=== PATIENT | female | born 1975 | race Two or more races ===

== ENCOUNTER 2019-11-08 12:02 | Emergency (ER) | payer MEDICAID ==
[~2019-11-08] VITALS: Ht 167.6 cm; Wt 68.0 kg
--- NOTE | 2019-11-08 12:20 | NUR ---
THE PATIENT SEEK MEDICAL HELP FOR WORSENING DEPRESSION
[2019-11-08 12:44] LABS: APPEARANCE,URINE CLEAR (CLEAR); BILIRUBIN,URINE NEGATIVE (NEGATIVE); BLOOD, URINE NEGATIVE Ery/uL (NEGATIVE); COLOR,URINE YELLOW (YELLOW); KETONES,URINE NEGATIVE (NEGATIVE); LEUKOCYTE ESTERASE ,URINE TRACE (NEGATIVE); NITRITE, URINE NEGATIVE (NEGATIVE); PROTEIN,URINE NEGATIVE (NEGATIVE); UGLUCOSE NEGATIVE (NEGATIVE); UROBILINOGEN,URINE 0.2 EU/dL (0.2)
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
--- NOTE | 2019-11-08 13:42 | NUR ---
PATIENT ATTEMPTED TO HURT SELF, WITH SITTER AT BEDSIDE, ER STAFF STOPPED ATTEMPT OF PATIENT HURTING SELF
[2019-11-08 13:55] LABS: BACTERIA,URINE Few /HPF (None Seen); RBC,URINE 0-2 /HPF (0-2); SQUAMOUS EPITHELIAL CELL,UR Moderate /HPF (None Seen)
[2019-11-08 14:00] LABS: BASOPHILS % (AUTO) 0.4 % (0.0-2.0); EOSINOPHILS % (AUTO) 3.5 % (0.0-6.0); HEMATOCRIT 36 % (33-45); HEMOGLOBIN 12.1 g/dL (11.5-14.8); LYMPHOCYTES # (AUTO) 1.8 /CMM (0.8-4.8); LYMPHOCYTES % (AUTO) 29.4 % (20.0-44.0); MEAN CORPUSCULAR HGB CONC 34 g/dl (31.0-36.0); MEAN CORPUSCULAR VOLUME 86 fL (82-100); MONOCYTES # (AUTO) 0.6 /CMM (0.1-1.30); MONOCYTES % (AUTO) 10.5 % (2.0-12.0); NEUTROPHILS # (AUTO) 3.4 /CMM (1.8-8.9); NEUTROPHILS % (AUTO) 56.2 % (43.0-81.0); PLATELET COUNT (AUTO) 320 /CMM (150-450); RED BLOOD CELL COUNT(AUTO) 4.16 MIL/uL (4.0-5.2)
[2019-11-08] MEDS ORDERED: LORAZEPAM 1 MG TABLET PO ONE (14:00)
[2019-11-08] MEDS ORDERED: MAGNESIUM HYDROXIDE 30 ML UDC PO ONE (14:00)
--- NOTE | 2019-11-08 14:16 | NUR ---
EVAN consulted with Social warehouse shipping supervisor Meme Webster regarding pt's attempt to wrap the call-light call in the Ed. Per Meme, wastewater treatment engineer Art will need to be called to place pt. on hold for danger to self. EVAN updated [facility] with updated information.
[2019-11-08 14:17] LABS: ALANINE AMINOTRANSFERASE 69 U/L (12-78); ALBUMIN 3.4 g/dL (3.4-5.0); ALCOHOL, BLOOD < 3 mg/dL (0-0); ALKALINE PHOSPHATASE 92 U/L (46-116); ASPARTATE AMINOTRANSFERASE 28 U/L (15-37); BILIRUBIN,DIRECT 0.1 mg/dL (0.0-0.2); BILIRUBIN,TOTAL 0.2 mg/dL (0.2-1.0); CALCIUM, SERUM 9.2 mg/dL (8.5-10.1); CARBON DIOXIDE 33 mmol/L (21-32); CHLORIDE 102 mmol/L (98-107); CREATININE 0.7 mg/dL (0.6-1.3); GLUCOSE 95 mg/dL (74-106); POTASSIUM 4.8 mmol/L (3.5-5.1); SALICYLATE 3.1 mg/dL (2.8-20.0); SODIUM SERUM 140 mmol/L (136-145); UREA NITROGEN, BLOOD 13 mg/dL (7-18)
[2019-11-08 14:20] LABS: ACETAMINOPHEN 0 ug/ml (10-30)
[2019-11-08] MEDS ORDERED: MAGNESIUM HYDROXIDE 30 ML UDC ONE (14:50)
[2019-11-08] MEDS ORDERED: LORAZEPAM 1 MG TABLET ONE (14:51)
--- NOTE | 2019-11-08 15:01 | NUR ---
CALLED EMERGENCY VETERINARY ASSISTANT ART FOR EVAL OF THIS PATIENT
--- NOTE | 2019-11-08 15:38 | NUR ---
security guard garcía castillo at bedside
--- NOTE | 2019-11-08 15:55 | NUR ---
EVAN consulted with crisis team geropsychologist Art. Art called Pierre at [facility] and inquired if they would accept pt. after her suicidal attempt in the ED. Pierre informed Art, they will accept the pt at [facility]. EVAN faxed clinicals to [facility] intake
--- NOTE | 2019-11-08 16:26 | NUR ---
PATIENT ATTEMPTED TO HURT SELF, WITH SITTER AT BEDSIDE, ER STAFF STOPPED ATTEMPT OF PATIENT HURTING SELF
--- NOTE | 2019-11-08 17:15 | NUR ---
PATIENT ACCEPTED A [facility], REPORT PHONE # [phone] [place] [address]) ACCEPTING MD: DR TRUJILLO, DR ALVAREZ
--- NOTE | 2019-11-08 17:21 | NUR ---
REPORT GIVEN TO ARUN MARIN OF [facility]
[2019-11-08] MEDS ORDERED: LEVOFLOXACIN 750 MG /D5W 150ML 150 ML IV ONE ×2 (18:00→18:39)
[2019-11-08] MEDS ORDERED: IBUPROFEN 400 MG TABLET ONE (18:52)
--- NOTE | 2019-11-08 18:55 | NUR ---
RECEIVED VERBAL ORDER FROM KEYLA TORRES FOR TORADOL 30MG IVP. CARRIED OUT ORDER.
[2019-11-08] MEDS ORDERED: KETOROLAC TROMETHAMINE INJ 30 MG/ML VIAL ONE ×2 (18:56→19:31)
[2019-11-08] MEDS ORDERED: IBUPROFEN 400 MG TABLET PO ONE (19:00)
[2019-11-08 19:01] VITALS: BP 142/58
[2019-11-08] MEDS ORDERED: methylPREDNISolone SOD SUCC 125 MG/2ML VIAL IV ONE (19:30)
[2019-11-08] MEDS ORDERED: KETOROLAC TROMETHAMINE INJ 30 MG/ML VIAL IV ONE (19:30)
[2019-11-08] MEDS ORDERED: methylPREDNISolone SOD SUCC 125 MG/2ML VIAL ONE (19:31)
== END 2019-11-08 20:41 ==
LOC: ER 12:05 → EDBD 12:05 → ER 20:41
DX: R45.851 Suicidal ideations (principal); F32.9 Major depressive disorder, single episode, unspecified; F19.10 Other psychoactive substance abuse, uncomplicated; J18.9 Pneumonia, unspecified organism; K59.00 Constipation, unspecified; F17.200 Nicotine dependence, unspecified, uncomplicated
CPT/HCPCS: 36415; 71045; 74176; 80048; 80076; 80305; 80307; 80329; 81001; 84703; 85025; 96365; 96375; 99285; G0480; J1885 ×2; J1956; J2930; 81000-TC

== ENCOUNTER 2020-06-28 18:22 | Emergency (ER) | payer MEDICAID, OTHER ==
[~2020-06-28] VITALS: Ht 167.6 cm; Wt 68.0 kg
--- NOTE | 2020-06-28 18:32 | NUR ---
called for triage not in the waiting room
--- NOTE | 2020-06-28 18:38 | NUR ---
called for triage not in the waiting room
--- NOTE | 2020-06-28 18:43 | NUR ---
Patient came in to the er c/o suicidal ideation "i want to overdose on my pills". On room air, breathing evenly and unlabored. sitter at bedside for constant monitoring. will continue to monitor accordingly.
--- NOTE | 2020-06-28 18:44 | NUR ---
called security for wanding
--- NOTE | 2020-06-28 18:45 | NUR ---
security at bedside for wanding
--- NOTE | 2020-06-28 19:10 | NUR ---
ASSUMED CARE FOR THIS PT
[2020-06-28 19:15] LABS: APPEARANCE,URINE CLEAR (CLEAR); BASOPHILS % (AUTO) 0.2 % (0.0-2.0); BILIRUBIN,URINE NEGATIVE (NEGATIVE); BLOOD, URINE SMALL Ery/uL (NEGATIVE); COLOR,URINE YELLOW (YELLOW); EOSINOPHILS % (AUTO) 1.8 % (0.0-6.0); HEMATOCRIT 37 % (33-45); HEMOGLOBIN 12.4 g/dL (11.5-14.8); KETONES,URINE NEGATIVE (NEGATIVE); LEUKOCYTE ESTERASE ,URINE MODERATE (NEGATIVE); LYMPHOCYTES # (AUTO) 1.7 /CMM (0.8-4.8); LYMPHOCYTES % (AUTO) 26.8 % (20.0-44.0); MEAN CORPUSCULAR HGB CONC 34 g/dl (31.0-36.0); MEAN CORPUSCULAR VOLUME 91 fL (82-100); MONOCYTES # (AUTO) 0.8 /CMM (0.1-1.30); MONOCYTES % (AUTO) 12.2 % (2.0-12.0); NEUTROPHILS # (AUTO) 3.7 /CMM (1.8-8.9); NITRITE, URINE NEGATIVE (NEGATIVE); PLATELET COUNT (AUTO) 327 /CMM (150-450); PROTEIN,URINE NEGATIVE (NEGATIVE); RED BLOOD CELL COUNT(AUTO) 4.03 MIL/uL (4.0-5.2); UGLUCOSE NEGATIVE (NEGATIVE); UROBILINOGEN,URINE 0.2 EU/dL (0.2); WHITE BLOOD COUNT (AUTO) 6.2 K/uL (4.3-11.0)
--- NOTE | 2020-06-28 19:15 | NUR ---
PT AAOX4, VSS, RESPIRATIONS EVEN AND UNLABORED ON RA W/ NAD NOTED. PT CONNECTED TO THE MONITOR AND POX. SITTER AT BEDSIDE FOR SAFETY
[2020-06-28 19:29] LABS: BACTERIA,URINE 2+ /HPF (None Seen)
[2020-06-28] MEDS ORDERED: ACETAMINOPHEN 325 MG TABLET PO ONE (19:30)
[2020-06-28] MEDS ORDERED: ONDANSETRON 4 MG TAB.RAPDIS SL ONE (19:30)
--- NOTE | 2020-06-28 19:30 | NUR ---
KEYLA BROWN AT BEDSIDE
[2020-06-28 19:33] LABS: CALCIUM, SERUM 8.3 mg/dL (8.5-10.1); CARBON DIOXIDE 22 mmol/L (21-32); CHLORIDE 105 mmol/L (98-107); CREATININE 0.7 mg/dL (0.6-1.3); GLUCOSE 80 mg/dL (74-106); SODIUM SERUM 136 mmol/L (136-145); UREA NITROGEN, BLOOD 14 mg/dL (7-18)
[2020-06-28] MEDS ORDERED: NITROFURANTOIN/NITROFURAN MAC 100 MG CAPSULE ONE (19:42)
[2020-06-28] MEDS ORDERED: ACETAMINOPHEN ES 500 MG TABLET ONE (19:42)
[2020-06-28] MEDS ORDERED: ONDANSETRON 4 MG TAB.RAPDIS ONE (19:42)
[2020-06-28 19:45] LABS: ALANINE AMINOTRANSFERASE 62 U/L (12-78); ALBUMIN 3.2 g/dL (3.4-5.0); ALCOHOL, BLOOD < 3 mg/dL (0-0); ALKALINE PHOSPHATASE 90 U/L (46-116); ASPARTATE AMINOTRANSFERASE 21 U/L (15-37); BILIRUBIN,DIRECT 0.1 mg/dL (0.0-0.2); BILIRUBIN,TOTAL 0.2 mg/dL (0.2-1.0); TOTAL PROTEIN, SERUM 6.6 g/dL (6.4-8.2)
[2020-06-28] MEDS ORDERED: CHLORDIAZEPOXIDE HCL 25 MG CAPSULE PO ONE (20:00)
[2020-06-28] MEDS ORDERED: NITROFURANTOIN/NITROFURAN MAC 100 MG CAPSULE PO ONE (20:00)
[2020-06-28] MEDS ORDERED: PHENOBARBITAL 30 MG TABLET PO ONE (20:00)
--- NOTE | 2020-06-28 20:00 | NUR ---
PT REFUSED TYLENON 1 GM. PA MADE AWARE
[2020-06-28 20:07] LABS: ACETAMINOPHEN < 2 ug/ml (10-30); SALICYLATE 2.4 mg/dL (2.8-20.0)
[2020-06-28] MEDS ORDERED: CHLORDIAZEPOXIDE HCL 25 MG CAPSULE ONE (20:09)
[2020-06-28] MEDS ORDERED: PHENOBARBITAL 30 MG TABLET ONE (20:10)
--- NOTE | 2020-06-28 22:01 | NUR ---
PT RESTING COMFORTBALY IN BED. NAD NOTED. VSS. SITTER AT BEDSIDE FOR SAFETY
--- NOTE | 2020-06-28 22:16 | NUR ---
PT WANDERING AROUND THE ER. PT REORIENTED TO HER ROOM.
--- NOTE | 2020-06-29 00:11 | NUR ---
Patient is resting comfortably in bed with eyes closed. Easily aroused. VSS.
[2020-06-29] MEDS ORDERED: LORAZEPAM 1 MG TABLET ONE (00:50)
[2020-06-29] MEDS ORDERED: LORAZEPAM 1 MG TABLET PO ONE (01:00)
[2020-06-29] MEDS ORDERED: NICOTINE PATCH (21MG) 21 MG PATCH.TD24 TD ONE ×2 (01:10→01:30)
--- NOTE | 2020-06-29 01:23 | NUR ---
PT ASLEEP. NAD NOTED. VSS. SITTER AT BEDSIDE FOR SAFETY
--- NOTE | 2020-06-29 03:20 | NUR ---
PT RESTING COMFORTBALY IN BED. NAD NOTED. VSS. SITTER AT BEDSIDE FOR SAFETY
--- NOTE | 2020-06-29 04:38 | NUR ---
AMBULATED TO THE RESTROOM
--- NOTE | 2020-06-29 06:57 | NUR ---
PT RESTING COMFORTABLY, PROVIDED WITH MORE BLANKETS.
--- NOTE | 2020-06-29 10:37 | NUR ---
ACCEPTED AT [facility] BY DR. EAMON FLORES [phone]
--- NOTE | 2020-06-29 11:15 | NUR ---
CALLED CALL THE CAR. CONFIRMATION NUMBER [phone]. AWAITING CALL BACK FOR ETA
--- NOTE | 2020-06-29 11:23 | NUR ---
AMBULANCE ETA 12PM
[2020-06-29] MEDS ORDERED: PHENOBARBITAL 30 MG TABLET PO ONE (12:30)
[2020-06-29] MEDS ORDERED: CHLORDIAZEPOXIDE HCL 25 MG CAPSULE PO ONE (12:30)
[2020-06-29] MEDS ORDERED: NITROFURANTOIN/NITROFURAN MAC 100 MG CAPSULE PO ONE (12:30)
--- NOTE | 2020-06-29 12:32 | NUR ---
CALL FROM JULIA MACIAS, GOING TO [address], REPORT TO [phone], ASK FOR UNIT 2, ACCEPTED BY DR ARMENDARIZ
--- NOTE | 2020-06-29 12:42 | NUR ---
30-40 MIN ETA AMBULIFE
[2020-06-29] MEDS ORDERED: PHENOBARBITAL 30 MG TABLET ONE (12:48)
[2020-06-29] MEDS ORDERED: CHLORDIAZEPOXIDE HCL 25 MG CAPSULE ONE (12:48)
[2020-06-29] MEDS ORDERED: NITROFURANTOIN/NITROFURAN MAC 100 MG CAPSULE ONE (12:48)
[2020-06-29 13:14] VITALS: BP 120/68
--- NOTE | 2020-06-29 13:14 | NUR ---
REPORT GIVEN TO MENA MARIN.
--- NOTE | 2020-06-29 13:17 | NUR ---
REPORT GIVEN TO CONVEYOR INSTALLER. NO DISTRESS NOTED.
--- NOTE | 2020-06-29 13:21 | NUR ---
Patient Tranfers to outside Facility Physician: [facility] Location: [place] [id number], STABLE CONDITION.
== END 2020-06-29 13:22 ==
LOC: ER 18:28
DX: R45.851 Suicidal ideations (principal); F41.9 Anxiety disorder, unspecified; N39.0 Urinary tract infection, site not specified; R11.0 Nausea; F17.200 Nicotine dependence, unspecified, uncomplicated; G40.909 Epilepsy, unspecified, not intractable, without status epilepticus; F32.9 Major depressive disorder, single episode, unspecified; Z88.6 Allergy status to analgesic agent
CPT/HCPCS: 36415; 80048; 80076; 80305; 80307; 80329; 81001; 84703; 85025; 87086; 99285; 99406; G0480; Q0162; 81000-TC

== ENCOUNTER 2021-05-04 20:53 | Emergency (ER) | payer OTHER ==
[~2021-05-04] VITALS: Ht 167.6 cm; Wt 68.0 kg
--- NOTE | 2021-05-04 21:03 | NUR ---
CALLED TO TRIAGE, NOT IN WAITING ROOM
--- NOTE | 2021-05-04 21:13 | NUR ---
PRSENTED TO THE ER W/ C/O SI , PLANNING TO JUMP IN TO TRAFFIC. REQUESTING MEDICAL CLEARANC FOR VOLUNTARY PSYCH ADMISSION. PT AMBULATORY W/ SEADY GAITS. VSS. UNABLE TO PROVIDE URINE SAMPLE AT THIS TIME. PT REMAINED ON A CLOSE OBSERVATION W. SI PRECAUTION IN PLACE. WILL CONT TO MONITOR ,
[2021-05-04 21:35] LABS: BILIRUBIN,URINE NEGATIVE (NEGATIVE); COLOR,URINE YELLOW (YELLOW); LEUKOCYTE ESTERASE ,URINE NEGATIVE (NEGATIVE); NITRITE, URINE NEGATIVE (NEGATIVE); PH,URINE 5.5 (5.0-8.0); PROTEIN,URINE NEGATIVE (NEGATIVE); UGLUCOSE NEGATIVE (NEGATIVE); UROBILINOGEN,URINE 0.2 EU/dL (0.2)
[2021-05-04 21:37] LABS: BASOPHILS % (AUTO) 0.2 % (0.0-2.0); EOSINOPHILS % (AUTO) 1.7 % (0.0-6.0); HEMATOCRIT 38 % (33-45); HEMOGLOBIN 12.9 g/dL (11.5-14.8); LYMPHOCYTES # (AUTO) 1.6 K/uL (0.8-4.8); LYMPHOCYTES % (AUTO) 20.2 % (20.0-44.0); MEAN CORPUSCULAR HGB CONC 34 g/dl (31.0-36.0); MEAN CORPUSCULAR VOLUME 90 fL (82-100); MONOCYTES # (AUTO) 0.7 K/uL (0.1-1.30); MONOCYTES % (AUTO) 8.2 % (2.0-12.0); NEUTROPHILS # (AUTO) 5.7 K/uL (1.8-8.9); NEUTROPHILS % (AUTO) 69.7 % (43.0-81.0); PLATELET COUNT (AUTO) 301 K/uL (150-450); RED BLOOD CELL COUNT(AUTO) 4.26 MIL/uL (4.0-5.2); WHITE BLOOD COUNT (AUTO) 8.1 K/uL (4.3-11.0)
[2021-05-04 21:53] LABS: CALCIUM, SERUM 8.5 mg/dL (8.5-10.1); CARBON DIOXIDE 28 mmol/L (21-32); CHLORIDE 103 mmol/L (98-107); CREATININE 0.7 mg/dL (0.6-1.3); GLUCOSE 87 mg/dL (74-106); POTASSIUM 4.3 mmol/L (3.5-5.1); SODIUM SERUM 137 mmol/L (136-145); UREA NITROGEN, BLOOD 7 mg/dL (7-18)
[2021-05-04 21:59] LABS: ALANINE AMINOTRANSFERASE 135 U/L (12-78); ALBUMIN 3.9 g/dL (3.4-5.0); ALKALINE PHOSPHATASE 273 U/L (46-116); ASPARTATE AMINOTRANSFERASE 124 U/L (15-37); BILIRUBIN,DIRECT 0.1 mg/dL (0.0-0.2); BILIRUBIN,TOTAL 0.2 mg/dL (0.2-1.0); TOTAL PROTEIN, SERUM 7.2 g/dL (6.4-8.2)
[2021-05-04 22:01] LABS: ACETAMINOPHEN < 2 ug/ml (10-30); ALCOHOL, BLOOD < 3 mg/dL (0-0)
--- NOTE | 2021-05-05 01:06 | NUR ---
PER FÉLIX AT [facility], PT GOT ACCEPTED AT [facility] BY DR DENNISON AT UNIT 2
--- NOTE | 2021-05-05 01:18 | NUR ---
CALLED CALL THE CAR AND SPOKE TO GREYSON TO ARRANGE TRANSPORTATION TO [facility]. WILL GIVE US A CALL BACK WITH AN ETA. RESERVATION NUMBER: [id number]
--- NOTE | 2021-05-05 01:43 | NUR ---
ETA: 0330 BY [facility]
[2021-05-05 01:59] VITALS: BP 111/72
--- NOTE | 2021-05-05 02:57 | NUR ---
PT WAS TRANSFERRED TO [facility] BY AISHA IN STABLE CONDITION, ALL BELONGINGS WERE PICKED UP
== END 2021-05-05 03:00 ==
LOC: ER 20:57
DX: R45.851 Suicidal ideations (principal); G40.909 Epilepsy, unspecified, not intractable, without status epilepticus; K50.90 Crohn's disease, unspecified, without complications; Z88.6 Allergy status to analgesic agent; J43.9 Emphysema, unspecified; Z20.822 Contact with and (suspected) exposure to COVID-19
CPT/HCPCS: 36415; 80048; 80076; 80143; 80307; 80320; 81003; 84703; 85025; 87426; 99285; C9803; G0480

== ENCOUNTER 2021-06-09 15:23 | Emergency (ER) | payer OTHER ==
[~2021-06-09] VITALS: Ht 167.6 cm; Wt 63.5 kg
--- NOTE | 2021-06-09 15:48 | NUR ---
TO ER BED 20, C/O SUICIDAL IDEATION LIKE SLITTING WRIST OR OD ON PILLS, PLACED ON SUICIDE PRECAUTION, 1:1 SUPERVISION
[2021-06-09 16:19] LABS: BASOPHILS % (AUTO) 0.9 % (0.0-2.0); EOSINOPHILS % (AUTO) 5.1 % (0.0-6.0); HEMATOCRIT 41 % (33-45); HEMOGLOBIN 13.8 g/dL (11.5-14.8); LYMPHOCYTES # (AUTO) 1.7 K/uL (0.8-4.8); MEAN CORPUSCULAR HGB CONC 33 g/dl (31.0-36.0); MEAN CORPUSCULAR VOLUME 90 fL (82-100); MONOCYTES # (AUTO) 0.4 K/uL (0.1-1.30); MONOCYTES % (AUTO) 8.9 % (2.0-12.0); NEUTROPHILS # (AUTO) 2.4 K/uL (1.8-8.9); NEUTROPHILS % (AUTO) 50.1 % (43.0-81.0); PLATELET COUNT (AUTO) 219 K/uL (150-450); WHITE BLOOD COUNT (AUTO) 4.9 K/uL (4.3-11.0)
[2021-06-09 16:22] LABS: BILIRUBIN,URINE Negative (NEGATIVE); COLOR,URINE YELLOW (YELLOW); LEUKOCYTE ESTERASE ,URINE Negative (NEGATIVE); NITRITE, URINE Negative (NEGATIVE); PH,URINE 5.5 (5.0-8.0); PROTEIN,URINE Negative (NEGATIVE); UGLUCOSE Negative (NEGATIVE); UROBILINOGEN,URINE 0.2 EU/dL (0.2)
[2021-06-09 16:29] LABS: CALCIUM, SERUM 8.6 mg/dL (8.5-10.1); CARBON DIOXIDE 30 mmol/L (21-32); CHLORIDE 104 mmol/L (98-107); CREATININE 0.7 mg/dL (0.6-1.3); GLUCOSE 78 mg/dL (74-106); POTASSIUM 4.2 mmol/L (3.5-5.1); SODIUM SERUM 143 mmol/L (136-145); UREA NITROGEN, BLOOD 10 mg/dL (7-18)
[2021-06-09 16:34] LABS: ALANINE AMINOTRANSFERASE 103 U/L (12-78); ALBUMIN 4.1 g/dL (3.4-5.0); ALCOHOL, BLOOD < 3 mg/dL (0-0); ALKALINE PHOSPHATASE 275 U/L (46-116); ASPARTATE AMINOTRANSFERASE 61 U/L (15-37); BILIRUBIN,DIRECT 0.2 mg/dL (0.0-0.2); BILIRUBIN,TOTAL 0.6 mg/dL (0.2-1.0); TOTAL PROTEIN, SERUM 7.7 g/dL (6.4-8.2)
[2021-06-09 16:35] LABS: ACETAMINOPHEN < 10 ug/ml (10-30)
--- NOTE | 2021-06-09 22:43 | NUR ---
CLINICAL AND FACESHEET FAXED TO [facility] INTA[facility] FOR VOLUNTARY PSYCH ADMISSION.
--- NOTE | 2021-06-10 01:43 | NUR ---
TRANSFER INFORMATION PT ACCEPTED AT [facility] ACCEPTING MD RO PHONE NUMBER FOR REPORT [phone]
--- NOTE | 2021-06-10 01:45 | NUR ---
TRANSPORT CALLED ([facility]) ETA 75-90MIN.
--- NOTE | 2021-06-10 02:56 | NUR ---
ATTEMPTED TO CALL FOR REPORT, NO ANSWER.
--- NOTE | 2021-06-10 03:15 | NUR ---
REPORT GIVEN TO CAROLE MARIN FOR GRACIE
--- NOTE | 2021-06-10 03:18 | NUR ---
TRANSPORT AT BEDSIDE REPORT GIVEN TO EMT.
[2021-06-10 03:19] VITALS: BP 128/67
== END 2021-06-10 03:35 ==
LOC: ER 15:25
DX: R45.851 Suicidal ideations (principal); F32.9 Major depressive disorder, single episode, unspecified; F15.10 Other stimulant abuse, uncomplicated; Z20.822 Contact with and (suspected) exposure to COVID-19; K50.90 Crohn's disease, unspecified, without complications; J43.9 Emphysema, unspecified; G40.909 Epilepsy, unspecified, not intractable, without status epilepticus; Z59.0 Homelessness; F17.210 Nicotine dependence, cigarettes, uncomplicated; R74.01 Elevation of levels of liver transaminase levels; I50.9 Heart failure, unspecified
CPT/HCPCS: 36415; 71045; 80048; 80076; 80143; 80307; 80320; 81003; 84703; 85025; 87426; 93005; 99285; 99406; C9803; G0480

== ENCOUNTER 2021-07-05 18:24 | Emergency (ER) | payer OTHER ==
[~2021-07-05] VITALS: Ht 167.6 cm; Wt 59.0 kg
[2021-07-05] MEDS ORDERED: ONDANSETRON 4 MG TAB.RAPDIS SL ONE (22:30)
[2021-07-05 22:34] LABS: BASOPHILS % (AUTO) 0.5 % (0.0-2.0); EOSINOPHILS % (AUTO) 2.5 % (0.0-6.0); HEMATOCRIT 43 % (33-45); HEMOGLOBIN 14.2 g/dL (11.5-14.8); LYMPHOCYTES # (AUTO) 3.1 K/uL (0.8-4.8); LYMPHOCYTES % (AUTO) 41.5 % (20.0-44.0); MEAN CORPUSCULAR HGB CONC 33 g/dl (31.0-36.0); MEAN CORPUSCULAR VOLUME 91 fL (82-100); MONOCYTES # (AUTO) 0.6 K/uL (0.1-1.30); MONOCYTES % (AUTO) 7.7 % (2.0-12.0); NEUTROPHILS # (AUTO) 3.6 K/uL (1.8-8.9); NEUTROPHILS % (AUTO) 47.8 % (43.0-81.0); PLATELET COUNT (AUTO) 277 K/uL (150-450); WHITE BLOOD COUNT (AUTO) 7.5 K/uL (4.3-11.0)
[2021-07-05 22:39] LABS: BILIRUBIN,URINE SMALL (NEGATIVE); COLOR,URINE YELLOW (YELLOW); LEUKOCYTE ESTERASE ,URINE Negative (NEGATIVE); NITRITE, URINE Negative (NEGATIVE); PH,URINE 7.5 (5.0-8.0); PROTEIN,URINE Negative (NEGATIVE); UGLUCOSE Negative (NEGATIVE); UROBILINOGEN,URINE 0.2 EU/dL (0.2)
[2021-07-05 22:40] LABS: CALCIUM, SERUM 9.2 mg/dL (8.5-10.1); CARBON DIOXIDE 30 mmol/L (21-32); CHLORIDE 105 mmol/L (98-107); CREATININE 0.7 mg/dL (0.6-1.3); GLUCOSE 133 mg/dL (74-106); POTASSIUM 4.3 mmol/L (3.5-5.1); SODIUM SERUM 143 mmol/L (136-145); UREA NITROGEN, BLOOD 8 mg/dL (7-18)
[2021-07-05] MEDS ORDERED: ONDANSETRON 4 MG TAB.RAPDIS ONE (22:58)
[2021-07-05 23:00] LABS: ALANINE AMINOTRANSFERASE 133 U/L (12-78); ALBUMIN 4.1 g/dL (3.4-5.0); ALCOHOL, BLOOD < 3 mg/dL (0-0); ALKALINE PHOSPHATASE 255 U/L (46-116); ASPARTATE AMINOTRANSFERASE 93 U/L (15-37); BILIRUBIN,DIRECT 0.5 mg/dL (0.0-0.2); TOTAL PROTEIN, SERUM 7.6 g/dL (6.4-8.2)
[2021-07-05 23:02] LABS: ACETAMINOPHEN 0 ug/ml (10-30)
[2021-07-05] MEDS ORDERED: CHLORDIAZEPOXIDE HCL 25 MG CAPSULE PO ONE (23:30)
[2021-07-05] MEDS ORDERED: CHLORDIAZEPOXIDE HCL 25 MG CAPSULE ONE (23:58)
--- NOTE | 2021-07-06 01:09 | NUR ---
FACESHEET AND CLINICALS FAXED TO [facility].
--- NOTE | 2021-07-06 04:00 | NUR ---
ASKING FOR SNACK, NEEDS MET
--- NOTE | 2021-07-06 05:25 | NUR ---
PER YOGESH: PT IS ACCEPTED AT [facility] BY PSYCH DR ALANIS AND MEDICAL DR LESTER NUMBER FOR REPORT: [phone] EX [phone]
--- NOTE | 2021-07-06 05:33 | NUR ---
CALLED [facility] FOR TRANSPORTATION TO [facility]. ETA 45-60 MINUTES.
--- NOTE | 2021-07-06 06:57 | NUR ---
REPORT GIVEN TO NANDINI MARIN FOR CONTINUATION OF CARE.
--- NOTE | 2021-07-06 07:21 | NUR ---
[facility] AT BED SIDE TO CASHIER GAMBLING THE PT. REPORT GIVEN
--- NOTE | 2021-07-06 07:47 | NUR ---
Note undone in EDM - 07/06/21 at 0804 by CORNELIUS The patient alert and oriented x4. In room air and denies SOB. Respiration regular and unlabored. Denies pain. The patient stated that she is not SI and she is not HI anymore. Denies having any hallucinations. The patient verbalized feeling safe and well. Dr Vásquez made aware. The patient is provided with discharge paperwork. Explained discharge instructions and she verbalized understanding. The patient refused to sign homeless waiver despite giving exolainations and resources. Left the hospital in stable condition.
--- NOTE | 2021-07-06 10:29 | NUR ---
CALLED [facility] FOR TRANSPORT TO [facility]. ETA 30 MINUTES.
[2021-07-06 10:34] VITALS: BP 135/79
--- NOTE | 2021-07-06 10:34 | NUR ---
report given to Alicia MARIN for javid.
--- NOTE | 2021-07-06 11:01 | NUR ---
patient picked up by private ambulance going to [facility] in no distress.
== END 2021-07-06 07:48 ==
LOC: ER 18:24
DX: R45.851 Suicidal ideations (principal); G40.909 Epilepsy, unspecified, not intractable, without status epilepticus; Z20.822 Contact with and (suspected) exposure to COVID-19; Z59.0 Homelessness; K50.90 Crohn's disease, unspecified, without complications; Z88.6 Allergy status to analgesic agent; J43.9 Emphysema, unspecified; R74.01 Elevation of levels of liver transaminase levels; F10.239 Alcohol dependence with withdrawal, unspecified; Y90.0 Blood alcohol level of less than 20 mg/100 ml; F32.9 Major depressive disorder, single episode, unspecified; F17.210 Nicotine dependence, cigarettes, uncomplicated
CPT/HCPCS: 36415; 80048; 80076; 80143; 80307; 80320; 81003; 83690; 84703; 85025; 87426; 99285; 99406; C9803; Q0162; G0480

== ENCOUNTER 2021-08-22 12:02 | Emergency (ER) | payer OTHER ==
[~2021-08-22] VITALS: Ht 167.6 cm; Wt 59.0 kg
--- NOTE | 2021-08-22 12:08 | NUR ---
called in ed waiting room. no response.
--- NOTE | 2021-08-22 12:29 | NUR ---
pt self presents to ed. steady gait c/o depression w/ suicidal ideation states "i want to drink and drive off a jovanna." pt also c/o felling nauseated, feeling sick states widrawing from alcohol. last drink was 3 days ago. no HI. pt is cooperative to staff. stable vitals. sitter at bedside. awaiting md leonardo.
--- NOTE | 2021-08-22 12:42 | NUR ---
dr venegas at bedside for eval.
--- NOTE | 2021-08-22 12:50 | NUR ---
dental lab technician at bedside for blood draw.
[2021-08-22 12:56] LABS: BASOPHILS # (AUTO) 0.1 K/uL (0.0-0.2); BASOPHILS % (AUTO) 3.2 % (0.0-2.0); EOSINOPHILS % (AUTO) 2.7 % (0.0-6.0); HEMATOCRIT 42 % (33-45); HEMOGLOBIN 13.8 g/dL (11.5-14.8); LYMPHOCYTES # (AUTO) 0.9 K/uL (0.8-4.8); LYMPHOCYTES % (AUTO) 29.5 % (20.0-44.0); MEAN CORPUSCULAR HGB CONC 33 g/dl (31.0-36.0); MEAN CORPUSCULAR VOLUME 91 fL (82-100); MONOCYTES # (AUTO) 0.3 K/uL (0.1-1.30); MONOCYTES % (AUTO) 9.4 % (2.0-12.0); NEUTROPHILS # (AUTO) 1.6 K/uL (1.8-8.9); NEUTROPHILS % (AUTO) 55.2 % (43.0-81.0); PLATELET COUNT (AUTO) 254 K/uL (150-450); RED BLOOD CELL COUNT(AUTO) 4.59 MIL/uL (4.0-5.2)
[2021-08-22 13:00] LABS: BILIRUBIN,URINE MODERATE (NEGATIVE); COLOR,URINE ORANGE (YELLOW); LEUKOCYTE ESTERASE ,URINE Negative (NEGATIVE); NITRITE, URINE Positive (NEGATIVE); PH,URINE 5.5 (5.0-8.0); PROTEIN,URINE 100 mg/dl (NEGATIVE); UGLUCOSE 100 MG/DL mg/dL (NEGATIVE)
[2021-08-22] MEDS ORDERED: ONDANSETRON 4 MG TAB.RAPDIS SL ONE (13:00)
[2021-08-22] MEDS ORDERED: TOPIRAMATE 25 MG TABLET PO ONE (13:00)
[2021-08-22] MEDS ORDERED: CHLORDIAZEPOXIDE HCL 25 MG CAPSULE PO ONE (13:00)
[2021-08-22] MEDS ORDERED: PHENOBARBITAL 30 MG TABLET PO ONE ×2 (13:00→13:30)
[2021-08-22 13:01] LABS: BACTERIA,URINE 1+ /HPF (None Seen); RBC,URINE NONE SEEN /HPF (0-2); SQUAMOUS EPITHELIAL CELL,UR Few /HPF (None Seen); WBC,URINE NONE SEEN /HPF (0-3)
[2021-08-22 13:03] LABS: CALCIUM, SERUM 8.4 mg/dL (8.5-10.1); CARBON DIOXIDE 32 mmol/L (21-32); CHLORIDE 103 mmol/L (98-107); CREATININE 0.9 mg/dL (0.6-1.3); GLUCOSE 131 mg/dL (74-106); SODIUM SERUM 145 mmol/L (136-145); UREA NITROGEN, BLOOD 7 mg/dL (7-18)
[2021-08-22 13:05] LABS: POTASSIUM 2.8 mmol/L (3.5-5.1)
[2021-08-22 13:09] LABS: ACETAMINOPHEN < 2 ug/ml (10-30); ALANINE AMINOTRANSFERASE 33 U/L (12-78); ALBUMIN 3.9 g/dL (3.4-5.0); ALCOHOL, BLOOD < 3 mg/dL (0-0); ALKALINE PHOSPHATASE 100 U/L (46-116); ASPARTATE AMINOTRANSFERASE 24 U/L (15-37); BILIRUBIN,DIRECT 0.1 mg/dL (0.0-0.2); BILIRUBIN,TOTAL 0.2 mg/dL (0.2-1.0); TOTAL PROTEIN, SERUM 7.2 g/dL (6.4-8.2)
[2021-08-22] MEDS ORDERED: ONDANSETRON 4 MG TAB.RAPDIS ONE (13:09)
[2021-08-22] MEDS ORDERED: CHLORDIAZEPOXIDE HCL 25 MG CAPSULE ONE (13:09)
[2021-08-22] MEDS ORDERED: TOPIRAMATE 25 MG TABLET ONE (13:10)
[2021-08-22] MEDS ORDERED: PHENOBARBITAL 30 MG TABLET ONE (13:12)
[2021-08-22] MEDS ORDERED: NITROFURANTOIN/NITROFURAN MONOHYDRATE 100 MG CAPSULE PO ONE (14:00)
[2021-08-22] MEDS ORDERED: POTASSIUM CHLORIDE 20 MEQ TAB.PRT.SR PO ONE ×2 (14:00)
[2021-08-22] MEDS ORDERED: NITROFURANTOIN/NITROFURAN MONOHYDRATE 100 MG CAPSULE ONE (14:00)
[2021-08-22] MEDS ORDERED: NITR100C6 PO (14:06)
[2021-08-22] MEDS ORDERED: DICYCLOMINE HCL 10 MG CAPSULE PO ONE ×2 (16:00→16:02)
--- NOTE | 2021-08-22 17:40 | NUR ---
called [facility] for update. no available bed at this time. covid test result faxed over.
--- NOTE | 2021-08-22 19:05 | NUR ---
Patient is resting comfortably in bed with eyes closed. Easily aroused. VSS
--- NOTE | 2021-08-22 21:22 | NUR ---
Patient is resting comfortably in bed with eyes closed. Easily aroused. VSS
--- NOTE | 2021-08-23 00:15 | NUR ---
PT SLEEPING, BREATHING EVENLY AND UNLABORED. VSS
--- NOTE | 2021-08-23 02:40 | NUR ---
pt sleeping, breathing evenly, attached to monitor
--- NOTE | 2021-08-23 04:20 | NUR ---
Patient is resting comfortably in bed with eyes closed. Easily aroused. VSS
--- NOTE | 2021-08-23 07:50 | NUR ---
[facility]. spoke to virgil. no available beds at this time.
[2021-08-23] MEDS ORDERED: CHLORDIAZEPOXIDE HCL 25 MG CAPSULE ONE ×2 (08:54→21:10)
[2021-08-23] MEDS ORDERED: CHLORDIAZEPOXIDE HCL 25 MG CAPSULE PO ONE ×2 (09:00→20:30)
[2021-08-23] MEDS ORDERED: ONDANSETRON 4 MG TAB.RAPDIS ONE (17:56)
[2021-08-23] MEDS ORDERED: ONDANSETRON 4 MG TAB.RAPDIS SL ONE (18:00)
--- NOTE | 2021-08-23 18:06 | NUR ---
accepted at [facility] under dr valera/ dr bowen going to unit I. number for report [phone] transport eta 193
--- NOTE | 2021-08-23 18:08 | NUR ---
CALLED [facility] FOR BLS TRANSPORT FOR PT AND ETA 193
[2021-08-23] MEDS ORDERED: POTASSIUM CHLORIDE 20 MEQ TAB.PRT.SR PO ONE ×2 (18:21→18:30)
--- NOTE | 2021-08-23 18:26 | NUR ---
ANT. CALLED. PT K+ 2.8. DR BENSON AWARE. PT MEDICATED W/ PO POTASSIUM. WILL RECHECK LEVEL AFTER 4 HRS.
--- NOTE | 2021-08-23 20:00 | NUR ---
PATIENT IN BED RESTING, AMBULATED TO RESTROOM AND RETURNED TO BED. PATIENT VSS. PATIENT NOTED WITH NO ACUTE DISTRESS.
[2021-08-23] MEDS ORDERED: PHENOBARBITAL 30 MG TABLET PO ONE (20:30)
[2021-08-23] MEDS ORDERED: TOPIRAMATE 25 MG TABLET PO ONE (20:30)
[2021-08-23] MEDS ORDERED: PHENOBARBITAL 30 MG TABLET ONE (21:11)
[2021-08-23] MEDS ORDERED: TOPIRAMATE 100 MG TABLET ONE (21:11)
--- NOTE | 2021-08-24 00:12 | NUR ---
PER ART AT [facility] , PT GOT ACCEPTED AT [facility], BY DR DENNISON. UNIT 1. REPORT TO [phone] [facility] ETA IN 45 TO 60 MIN
--- NOTE | 2021-08-24 00:31 | NUR ---
REPROT GIVEN TO APRIL GLEASON.
--- NOTE | 2021-08-24 01:03 | NUR ---
[facility] AT BED SIDE TO DATA QUALITY CONSULTANT THE PT
--- NOTE | 2021-08-24 01:29 | NUR ---
PT TRANSFERRED TO [facility] VIA AMBULANCE IN STABLE CONDITION.
[2021-08-24 01:30] VITALS: BP 135/74
== END 2021-08-24 01:30 ==
LOC: ER 12:03
DX: R45.851 Suicidal ideations (principal); N39.0 Urinary tract infection, site not specified; E87.6 Hypokalemia; Z59.00 Homelessness unspecified; Z20.822 Contact with and (suspected) exposure to COVID-19; D72.819 Decreased white blood cell count, unspecified; Z88.6 Allergy status to analgesic agent; Z88.1 Allergy status to other antibiotic agents; Z88.2 Allergy status to sulfonamides; K50.90 Crohn's disease, unspecified, without complications; J43.9 Emphysema, unspecified; I50.9 Heart failure, unspecified; G40.909 Epilepsy, unspecified, not intractable, without status epilepticus; F19.10 Other psychoactive substance abuse, uncomplicated; F17.200 Nicotine dependence, unspecified, uncomplicated
CPT/HCPCS: 36415; 80048; 80076; 80143; 80307; 80320; 81001; 85025; 87086; 87426; 99285; C9803; Q0162 ×2; 84132-TC; 84703-TC; G0480

== ENCOUNTER 2022-03-22 07:57 | Emergency (ER) | payer OTHER ==
[~2022-03-22] VITALS: Ht 167.6 cm; Wt 59.4 kg
[~2022-03-22 07:57] MED LIST: NITR100C6 PO
[2022-03-22 09:00] LABS: BASOPHILS % (AUTO) 0.5 % (0.0-2.0); EOSINOPHILS % (AUTO) 9.3 % (0.0-6.0); HEMATOCRIT 37 % (33-45); HEMOGLOBIN 12.3 g/dL (11.5-14.8); LYMPHOCYTES # (AUTO) 1.5 K/uL (0.8-4.8); LYMPHOCYTES % (AUTO) 29.3 % (20.0-44.0); MEAN CORPUSCULAR HGB CONC 33 g/dl (31.0-36.0); MEAN CORPUSCULAR VOLUME 87 fL (82-100); MONOCYTES # (AUTO) 0.5 K/uL (0.1-1.30); MONOCYTES % (AUTO) 10.3 % (2.0-12.0); NEUTROPHILS # (AUTO) 2.5 K/uL (1.8-8.9); NEUTROPHILS % (AUTO) 50.6 % (43.0-81.0); PLATELET COUNT (AUTO) 275 K/uL (150-450); RED BLOOD CELL COUNT(AUTO) 4.27 MIL/uL (4.0-5.2)
[2022-03-22 09:02] LABS: BILIRUBIN,URINE NEGATIVE (NEGATIVE); COLOR,URINE YELLOW (YELLOW); LEUKOCYTE ESTERASE ,URINE SMALL (NEGATIVE); NITRITE, URINE NEGATIVE (NEGATIVE); PROTEIN,URINE NEGATIVE (NEGATIVE); UGLUCOSE NEGATIVE (NEGATIVE); UROBILINOGEN,URINE 0.2 EU/dL (0.2)
[2022-03-22 09:09] LABS: CALCIUM, SERUM 8.2 mg/dL (8.5-10.1); CARBON DIOXIDE 32 mmol/L (21-32); CHLORIDE 103 mmol/L (98-107); CREATININE 0.8 mg/dL (0.6-1.3); GLUCOSE 63 mg/dL (74-106); POTASSIUM 3.3 mmol/L (3.5-5.1); SODIUM SERUM 141 mmol/L (136-145); UREA NITROGEN, BLOOD 13 mg/dL (7-18)
[2022-03-22 09:15] LABS: BACTERIA,URINE Moderate /HPF (None Seen); RBC,URINE 0-2 /HPF (0-2); SQUAMOUS EPITHELIAL CELL,UR Many /HPF (None Seen)
[2022-03-22 09:16] LABS: ALANINE AMINOTRANSFERASE 116 U/L (12-78); ALBUMIN 3.6 g/dL (3.4-5.0); ALKALINE PHOSPHATASE 176 U/L (46-116); ASPARTATE AMINOTRANSFERASE 49 U/L (15-37); BILIRUBIN,DIRECT 0.1 mg/dL (0.0-0.2); BILIRUBIN,TOTAL 0.2 mg/dL (0.2-1.0); TOTAL PROTEIN, SERUM 7.1 g/dL (6.4-8.2)
[2022-03-22 09:20] LABS: ACETAMINOPHEN 0 ug/ml (10-30); ALCOHOL, BLOOD < 3 mg/dL (0-0)
[2022-03-23] MEDS ORDERED: DICYCLOMINE HCL INJ 20 MG/2 ML AMPUL IM ONE ×2 (07:00→07:01)
[2022-03-23] MEDS ORDERED: FUROSEMIDE 40 MG TABLET PO ONE (07:00)
[2022-03-23] MEDS ORDERED: PHENOBARBITAL 30 MG TABLET PO ONE (07:00)
[2022-03-23] MEDS ORDERED: FUROSEMIDE 40 MG TABLET ONE (07:02)
[2022-03-23] MEDS ORDERED: PHENOBARBITAL 30 MG TABLET ONE (07:02)
[2022-03-23 13:30] VITALS: BP 125/76
[2022-03-23] MEDS ORDERED: POTASSIUM CHLORIDE 20 MEQ TAB.PRT.SR PO ONE ×2 (14:10→14:30)
== END 2022-03-23 14:30 ==
LOC: ER 07:57
DX: R45.851 Suicidal ideations (principal); E87.6 Hypokalemia; Z20.822 Contact with and (suspected) exposure to COVID-19; S00.83XA Contusion of other part of head, initial encounter; W06.XXXA Fall from bed, initial encounter; Y92.230 Patient room in hospital as the place of occurrence of the external cause; G40.909 Epilepsy, unspecified, not intractable, without status epilepticus; I50.9 Heart failure, unspecified; Z79.899 Other long term (current) drug therapy; J44.9 Chronic obstructive pulmonary disease, unspecified; E88.01 Alpha-1-antitrypsin deficiency; K50.90 Crohn's disease, unspecified, without complications; Z88.6 Allergy status to analgesic agent; Z88.1 Allergy status to other antibiotic agents; Z88.2 Allergy status to sulfonamides; Z59.00 Homelessness unspecified; F17.200 Nicotine dependence, unspecified, uncomplicated
CPT/HCPCS: 36415; 70450; 80048; 80076; 80143; 80307; 80320; 81001; 84703; 85025; 87086; 87426; 96372; 99285; C9803; J0500; G0480

== ENCOUNTER 2022-07-03 22:28 | Emergency (ER) | payer OTHER ==
[~2022-07-03] VITALS: Ht 167.6 cm; Wt 65.8 kg
[2022-07-03] MEDS ORDERED: PENI500T PO (22:42)
[2022-07-03] MEDS ORDERED: AMOXICILLIN TRIHYDRATE 250 MG CAPSULE ONE (22:55)
[2022-07-03] MEDS ORDERED: AMOXICILLIN TRIHYDRATE 500 MG CAPSULE PO ONE (23:00)
[2022-07-03] MEDS ORDERED: PENICILLIN V POTASSIUM 500 MG TABLET PO ONE (23:00)
[2022-07-03 23:53] LABS: BASOPHILS % (AUTO) 0.2 % (0.0-2.0); HEMATOCRIT 36 % (33-45); HEMOGLOBIN 12.4 g/dL (11.5-14.8); LYMPHOCYTES # (AUTO) 2.2 K/uL (0.8-4.8); LYMPHOCYTES % (AUTO) 28.9 % (20.0-44.0); MEAN CORPUSCULAR HGB CONC 34 g/dl (31.0-36.0); MEAN CORPUSCULAR VOLUME 89 fL (82-100); MONOCYTES # (AUTO) 0.8 K/uL (0.1-1.30); NEUTROPHILS # (AUTO) 4.5 K/uL (1.8-8.9); NEUTROPHILS % (AUTO) 58.9 % (43.0-81.0); PLATELET COUNT (AUTO) 279 K/uL (150-450); RED BLOOD CELL COUNT(AUTO) 4.09 MIL/uL (4.0-5.2); WHITE BLOOD COUNT (AUTO) 7.7 K/uL (4.3-11.0)
[2022-07-03 23:56] LABS: BILIRUBIN,URINE NEGATIVE (NEGATIVE); COLOR,URINE YELLOW (YELLOW); LEUKOCYTE ESTERASE ,URINE NEGATIVE (NEGATIVE); PROTEIN,URINE NEGATIVE (NEGATIVE); UGLUCOSE NEGATIVE (NEGATIVE); UROBILINOGEN,URINE 0.2 EU/dL (0.2)
[2022-07-04 00:05] LABS: CALCIUM, SERUM 8.4 mg/dL (8.5-10.1); CARBON DIOXIDE 29 mmol/L (21-32); CHLORIDE 101 mmol/L (98-107); CREATININE 0.6 mg/dL (0.6-1.3); GLUCOSE 97 mg/dL (74-106); POTASSIUM 3.7 mmol/L (3.5-5.1); SODIUM SERUM 138 mmol/L (136-145); UREA NITROGEN, BLOOD 6 mg/dL (7-18)
[2022-07-04 00:06] LABS: NITRITE, URINE NEGATIVE (NEGATIVE)
[2022-07-04 00:12] LABS: ALANINE AMINOTRANSFERASE 183 U/L (12-78); ALBUMIN 4.1 g/dL (3.4-5.0); ALCOHOL, BLOOD < 3 mg/dL (0-0); ALKALINE PHOSPHATASE 239 U/L (46-116); ASPARTATE AMINOTRANSFERASE 67 U/L (15-37); BILIRUBIN,DIRECT 0.2 mg/dL (0.0-0.2); BILIRUBIN,TOTAL 0.6 mg/dL (0.2-1.0); TOTAL PROTEIN, SERUM 7.4 g/dL (6.4-8.2)
[2022-07-04 00:13] LABS: ACETAMINOPHEN < 2 ug/ml (10-30)
[2022-07-04] MEDS ORDERED: LORAZEPAM 1 MG TABLET ONE (00:37)
[2022-07-04] MEDS ORDERED: LORAZEPAM 1 MG TABLET PO ONE (01:00)
[2022-07-04] MEDS ORDERED: HALOPERIDOL LACTATE INJ 5 MG/ML VIAL ONE (03:39)
[2022-07-04] MEDS ORDERED: diphenhydrAMINE HCL 50 MG/ML VIAL ONE (03:39)
[2022-07-04] MEDS ORDERED: HALOPERIDOL LACTATE INJ 5 MG/ML VIAL IM ONE (04:00)
[2022-07-04] MEDS ORDERED: diphenhydrAMINE HCL 50 MG/ML VIAL IM ONE (04:00)
[2022-07-04 13:10] VITALS: BP 126/84
== END 2022-07-04 13:36 ==
LOC: ER 22:28
DX: R45.851 Suicidal ideations (principal); K04.7 Periapical abscess without sinus; Z20.822 Contact with and (suspected) exposure to COVID-19; Z59.00 Homelessness unspecified; Z88.6 Allergy status to analgesic agent; Z88.1 Allergy status to other antibiotic agents; Z88.2 Allergy status to sulfonamides; J44.9 Chronic obstructive pulmonary disease, unspecified; K50.90 Crohn's disease, unspecified, without complications; G40.909 Epilepsy, unspecified, not intractable, without status epilepticus
CPT/HCPCS: 99285; 85025; 80048; 80076; 81003; 36415; 87426; 80143; 80320; 80307; 96372 ×2; 84703; C9803; J1200; J1630; G0480

== ENCOUNTER 2022-07-15 07:54 | Emergency (ER) | payer OTHER ==
[~2022-07-15] VITALS: Ht 167.6 cm; Wt 65.8 kg
[~2022-07-15 07:54] MED LIST changes: +PENI500T PO
--- NOTE | 2022-07-15 08:45 | NUR ---
DR HOLLAND AT BEDSIDE FOR EVAL.
[2022-07-15 09:09] LABS: BILIRUBIN,URINE NEGATIVE (NEGATIVE); COLOR,URINE YELLOW (YELLOW); LEUKOCYTE ESTERASE ,URINE NEGATIVE (NEGATIVE); NITRITE, URINE NEGATIVE (NEGATIVE); PROTEIN,URINE NEGATIVE (NEGATIVE); UGLUCOSE NEGATIVE (NEGATIVE); UROBILINOGEN,URINE 0.2 EU/dL (0.2)
[2022-07-15 09:23] LABS: BASOPHILS % (AUTO) 0.5 % (0.0-2.0); EOSINOPHILS % (AUTO) 2.5 % (0.0-6.0); HEMATOCRIT 35 % (33-45); HEMOGLOBIN 11.7 g/dL (11.5-14.8); LYMPHOCYTES # (AUTO) 1.1 K/uL (0.8-4.8); LYMPHOCYTES % (AUTO) 35.8 % (20.0-44.0); MEAN CORPUSCULAR HGB CONC 34 g/dl (31.0-36.0); MEAN CORPUSCULAR VOLUME 88 fL (82-100); MONOCYTES # (AUTO) 0.3 K/uL (0.1-1.30); MONOCYTES % (AUTO) 9.4 % (2.0-12.0); NEUTROPHILS # (AUTO) 1.7 K/uL (1.8-8.9); NEUTROPHILS % (AUTO) 51.8 % (43.0-81.0); PLATELET COUNT (AUTO) 331 K/uL (150-450); RED BLOOD CELL COUNT(AUTO) 3.92 MIL/uL (4.0-5.2); WHITE BLOOD COUNT (AUTO) 3.2 K/uL (4.3-11.0)
[2022-07-15 09:31] LABS: CALCIUM, SERUM 8.3 mg/dL (8.5-10.1); CARBON DIOXIDE 29 mmol/L (21-32); CHLORIDE 105 mmol/L (98-107); CREATININE 0.7 mg/dL (0.6-1.3); GLUCOSE 86 mg/dL (74-106); POTASSIUM 3.7 mmol/L (3.5-5.1); SODIUM SERUM 136 mmol/L (136-145); UREA NITROGEN, BLOOD 13 mg/dL (7-18)
[2022-07-15 09:38] LABS: ALANINE AMINOTRANSFERASE 128 U/L (12-78); ALBUMIN 3.5 g/dL (3.4-5.0); ALCOHOL, BLOOD 71 mg/dL (0-0); ALKALINE PHOSPHATASE 174 U/L (46-116); ASPARTATE AMINOTRANSFERASE 170 U/L (15-37); BILIRUBIN,DIRECT 0.1 mg/dL (0.0-0.2); BILIRUBIN,TOTAL 0.2 mg/dL (0.2-1.0); TOTAL PROTEIN, SERUM 6.7 g/dL (6.4-8.2)
[2022-07-15 09:43] LABS: ACETAMINOPHEN < 10 ug/ml (10-30)
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
--- NOTE | 2022-07-15 17:24 | NUR ---
ACCEPTED AT PENDING SALE TO [facility] UNDER DR. RICHARD. [phone] FOR REPORT. WAITING FOR ETA FOR TRANSPORT.
[2022-07-15 18:13] VITALS: BP 109/67
--- NOTE | 2022-07-15 18:36 | NUR ---
PATIENT PROGRAM OFFICER BY [facility] GLEASON STAFF IN A STABLE CONDITION CALM-COOPERATIVE
== END 2022-07-15 18:41 ==
LOC: ER 07:56
DX: R45.851 Suicidal ideations (principal); R74.01 Elevation of levels of liver transaminase levels; D72.819 Decreased white blood cell count, unspecified; Z59.00 Homelessness unspecified; Z88.6 Allergy status to analgesic agent; Z88.1 Allergy status to other antibiotic agents; Z88.2 Allergy status to sulfonamides; E88.01 Alpha-1-antitrypsin deficiency; K50.90 Crohn's disease, unspecified, without complications; J44.9 Chronic obstructive pulmonary disease, unspecified; G40.909 Epilepsy, unspecified, not intractable, without status epilepticus; R60.0 Localized edema; R82.5 Elevated urine levels of drugs, medicaments and biological substances
CPT/HCPCS: 99285; 85025; 80048; 80076; 84703; 81003; 36415; 87426; 80143; 80320; 80307; C9803; G0480